=== PATIENT | female | born 1975 | race Caucasian/White ===

== ENCOUNTER 2021-03-02 02:44 | Emergency (ER) | payer MEDICAID, SELFPAY ==
[2021-03-02 02:55] VITALS: BP 120/65; PULSE 86; RESP 18; TEMP 36.3; O2SAT 99; BMI 21.4
[2021-03-02] MEDS: LORazepam 2 mg Tablet PO (03:47)
[2021-03-02 04:01] VITALS: BP 120/65; PULSE 86; RESP 18; O2SAT 99
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
== END 2021-03-02 03:50 ==
PROVIDERS: Emergency Provider Emergency Medicine; PCP Nurse Practitioner Family
DX: F41.9 Anxiety disorder, unspecified (principal)
CPT/HCPCS: 99282

== ENCOUNTER 2022-08-31 18:00 | Emergency (ER) | payer MEDICAID, SELFPAY ==
[2022-08-31 18:01] VITALS: BMI 19.2
[2022-08-31 18:06] VITALS: BP 120/74; PULSE 93; RESP 18; TEMP 36.2; O2SAT 97
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
[2022-08-31 18:36] VITALS: PULSE 101; RESP 18; O2SAT 98
[2022-08-31] MEDS: sertraline 100 mg Tablet PO (18:58)
[2022-08-31] MEDS: LORazepam 2 mg Tablet PO (18:58)
[2022-08-31] MEDS: ARIPiprazole 10 mg Tablet 5 MG PO (18:58)
== END 2022-08-31 20:25 | disposition home or self-care (01) ==
PROVIDERS: Emergency Provider Emergency Medicine; PCP Nurse Practitioner Family
DX: F41.9 Anxiety disorder, unspecified (principal); F43.9 Reaction to severe stress, unspecified
CPT/HCPCS: 99283

== ENCOUNTER → 2023-06-10 11:47 | Outpatient (BNVA) | payer MEDICAID, SELFPAY | PROVIDERS: PCP Nurse Practitioner Family; Visit Provider Obstetrics & Gynecology | DX: Z01.818 Encounter for other preprocedural examination (principal); R87.619 Unspecified abnormal cytological findings in specimens from cervix uteri | CPT/HCPCS: 81025; 88305 ==

== ENCOUNTER → 2023-06-23 15:29 | Outpatient (BNVA) | payer MEDICAID, SELFPAY | PROVIDERS: PCP Nurse Practitioner Family; Visit Provider Obstetrics & Gynecology | DX: R89.6 Abnormal cytological findings in specimens from other organs, systems and tissues (principal) | CPT/HCPCS: 76830 ==

== ENCOUNTER → 2023-07-06 11:30 | Outpatient (BNVA) | payer MEDICAID, SELFPAY | PROVIDERS: PCP Nurse Practitioner Family; Visit Provider Obstetrics & Gynecology | DX: R87.619 Unspecified abnormal cytological findings in specimens from cervix uteri (principal); R10.2 Pelvic and perineal pain | CPT/HCPCS: 80053; 85025 ==

== ENCOUNTER 2024-01-28 07:51 | Emergency (ER) | payer MEDICAID, SELFPAY ==
[2024-01-28 07:53] VITALS: BP 104/71; PULSE 69; RESP 16; TEMP 36.9; O2SAT 99; BMI 19.1
[2024-01-28 08:03] VITALS: BP 104/71; PULSE 69; RESP 16; TEMP 36.9; O2SAT 99
[2024-01-28 08:22] LABS: Charge for UA Resulting for Rev
[2024-01-28 08:28] LABS: Basophils # 0.1 10^3/uL (0.0-0.1); Basophils % 0.6 %; Eosinophils # 0.4 10^3/uL (0.0-0.8); Lymphocytes # 1.9 10^3/uL (0.8-4.8); Lymphocytes % 22.8 %; Mean Corpuscular HGB Conc 33.3 g/dL (30-55); Mean Corpuscular Hemoglobin 33.2 pg (27-33); Mean Corpuscular Volume 99.5 fl (85-98); Mean Platelet Volume 9.9 fL (7.4-10.4); Monocytes # 0.6 10^3/uL (0.2-0.9); Monocytes % 7.4 %; Nucleated Red Blood Cells % 0 %; Platelet Count 247 10^3/cmm (157-399); Red Blood Count 4.22 10^6/uL (3.85-5.65); Red Cell Distribution Width 12.4 % (12.1-15.1); White Blood Count 8.13 10^3/uL (3.29-11.43)
[2024-01-28 08:46] LABS: Acetaminophen < 5.0 ug/mL (10-30); Alanine Aminotransferase 11 U/L (0-33); Albumin Level 4.3 g/dL (3.5-5.2); Alcohol Level < 10 mg/dL (0-10); Alkaline Phosphatase 56 U/L (35-105); Anion Gap 14.1 (5-19); Aspartate Amino Transferase 16 U/L (0-32); Blood Urea Nitrogen 10 mg/dL (6-20); Calcium 8.8 mg/dL (8.5-10.5); Carbon Dioxide 21 mmol/L (22-29); Chloride 106 mmol/L (98-107); Creatinine Clr Calc Pharmacy 86.3671; Globulin 2.6 g/dL (1.3-4.6); Glomerular Filtration Rate 89.7 mL/min (90-130); Glucose 115 mg/dL (65-115); Osmolality Calculated 284 mOsm/kg (285-295); Potassium 4.1 mmol/L (3.5-5.1); Salicylate < 0.3 mg/dL (3-10); Sodium 137 mmol/L (136-145); Total Bilirubin 0.2 mg/dL (0.15-1.2); Total Protein 6.9 g/dL (6.6-8.7)
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
[2024-01-28 09:32] LABS: Bilirubin Urine Negative (Negative); Blood Urine Negative (Negative); Glucose Urine UA Negative (Normal); Ketones Urine Negative (Negative); Leukocyte Esterase Urine Negative (Negative); Nitrate Urine Negative (Negative); Protein Urine Negative (Negative); Specific Gravity, Urine 1.011 (1.005-1.030); Urine Appearance Clear (CLEAR); Urine Color Yellow (Yellow)
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
== END 2024-01-28 09:46 | disposition home or self-care (01) ==
PROVIDERS: Emergency Provider Family Medicine; PCP Nurse Practitioner Family
DX: F32.9 Major depressive disorder, single episode, unspecified (principal); F41.1 Generalized anxiety disorder; T76.31XA Adult psychological abuse, suspected, initial encounter
CPT/HCPCS: 36415; 80053; 80307; 81003; 81015; 85025; 99285

== ENCOUNTER → 2024-04-01 12:51 | Outpatient (BNVA) | payer MEDICAID, SELFPAY | PROVIDERS: PCP Nurse Practitioner Family; Visit Provider Nurse Practitioner | DX: J06.9 Acute upper respiratory infection, unspecified (principal) | CPT/HCPCS: 87426 ==

== ENCOUNTER 2024-04-02 13:30 | Emergency (ER) | payer MEDICAID, SELFPAY ==
[2024-04-02 13:33] VITALS: BP 139/119; PULSE 140; RESP 18; TEMP 37.9; O2SAT 99
--- NOTE | 2024-04-02 14:01 | XRR_ITS ---
PROCEDURE INFORMATION: Exam: XR Chest Exam date and time: 04/02/2024 2:22 PM Age: 49 years old Clinical indication: Shortness of breath; Patient HX: Tachycardia; Anxiety TECHNIQUE: Imaging protocol: Radiologic exam of the chest. Views: 1 view. COMPARISON: CR XR chest 1V [id number] 01/29/2018 3:53 PM FINDINGS: Lungs: Lungs appear clear without consolidation. Pleural spaces: No pneumothorax or pleural effusion. Heart/Mediastinum: Normal appearance of the cardiomediastinal silhouette. Bones/joints: Regional osseous structures are unremarkable. XR/XR chest 1V portable [id number] IMPRESSION: No radiographically apparent acute cardiopulmonary disease.
[2024-04-02 14:22] LABS: Basophils % 0.5 %; Eosinophils % 0.2 %; Hematocrit 41.1 % (36-47); Lymphocytes # 1.2 10^3/uL (0.8-4.8); Lymphocytes % 14.6 %; Mean Corpuscular HGB Conc 33.6 g/dL (30-55); Mean Corpuscular Hemoglobin 32.9 pg (27-33); Mean Corpuscular Volume 97.9 fl (85-98); Mean Platelet Volume 9.8 fL (7.4-10.4); Monocytes # 0.6 10^3/uL (0.2-0.9); Monocytes % 7.3 %; Neutrophils # 6.27 10^3/uL (1.8-7.7); Neutrophils % 77.2 %; Nucleated Red Blood Cells % 0 %; Platelet Count 221 10^3/cmm (157-399); Red Cell Distribution Width 12.3 % (12.1-15.1); White Blood Count 8.13 10^3/uL (3.29-11.43)
[2024-04-02 14:41] LABS: Alanine Aminotransferase 26 U/L (0-33); Albumin Level 4.2 g/dL (3.5-5.2); Alkaline Phosphatase 59 U/L (35-105); Anion Gap 14.6 (5-19); Aspartate Amino Transferase 26 U/L (0-32); Blood Urea Nitrogen 6 mg/dL (6-20); Calcium 8.6 mg/dL (8.5-10.5); Carbon Dioxide 21 mmol/L (22-29); Chloride 104 mmol/L (98-107); Globulin 2.6 g/dL (1.3-4.6); Glomerular Filtration Rate 89.7 mL/min (90-130); Glucose 104 mg/dL (65-115); Osmolality Calculated 280 mOsm/kg (285-295); Potassium 3.6 mmol/L (3.5-5.1); Sodium 136 mmol/L (136-145); Total Bilirubin 0.2 mg/dL (0.15-1.2); Total Protein 6.8 g/dL (6.6-8.7)
[2024-04-02 14:42] LABS: Troponin(5th) Baseline < 6 ng/L (0-10)
[2024-04-02 14:51] LABS: Bilirubin Urine Negative (Negative); Blood Urine Negative (Negative); Glucose Urine UA Negative (Normal); Ketones Urine Negative (Negative); Leukocyte Esterase Urine Trace (Negative); Nitrate Urine Negative (Negative); Protein Urine Negative (Negative); Specific Gravity, Urine 1.003 (1.005-1.030); Urine Appearance Clear (CLEAR); Urine Color Yellow (Yellow); Urobilinogen Urine 0.2 mg/dL (Negative); pH Urine 6.5 (5-7)
[2024-04-02] MEDS: sodium chloride 0.9% 1,000 ML 999 ML IV (14:55)
[2024-04-02 14:56] LABS: Add Urine Microscopic? YES; Bacteria Urine None Seen /hpf; Hyaline Casts Urine 0-4 /lpf; RBC Urine 0-2 /hpf (0-2); Squamous Epithelial Cell Urine 0-5 /hpf (0-5); WBC Urine 0-5 /hpf (0-5)
[2024-04-02 14:59] LABS: Amphetamines Screen Urine Negative (Negative); Barbiturates Screen Urine Negative (Negative); Benzodiazepines Screen Urine Negative (Negative); Cocaine Screen Urine Negative (Negative); Opiate Screen Urine Negative (Negative); PCP Screen Urine Negative (Negative); THC Screen Urine Positive (Negative)
--- NOTE | 2024-04-02 15:04 | ECG_ITS ---
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 Measurements Intervals [place] Rate: 87 P: 70 VT: 145 QRS: 72 QRSD: 88 T: 52 QT: 359 QTc: 434 Interpretive Statements SINUS RHYTHM WITH SINUS ARRHYTHMIA Compared to ECG 11/08/2018 01:44:24 No significant changes Electronically Signed On 04-02-2024 21:06:23 CDT by Gera Rachel M.D. [email or web address] hospital cleveland [email or web address] [id number]
[2024-04-02 15:38] VITALS: BP 115/73; PULSE 105; O2SAT 98
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
[2024-04-02 16:08] VITALS: BP 115/73; PULSE 99; O2SAT 97
== END 2024-04-02 16:23 | disposition home or self-care (01) ==
PROVIDERS: Emergency Provider Nurse Practitioner; PCP Nurse Practitioner Family
DX: F41.9 Anxiety disorder, unspecified (principal); F12.90 Cannabis use, unspecified, uncomplicated
CPT/HCPCS: 36415; 71045; 80053; 80306; 81001; 84484; 85025; 93005; 99285; J7030

== ENCOUNTER 2024-05-07 07:08 | Emergency (ER) | payer SELFPAY ==
[2024-05-07 07:08] VITALS: BP 126/85; PULSE 129; RESP 17; TEMP 36.8; O2SAT 98; BMI 18.3
--- NOTE | 2024-05-07 07:15 | ECG_ITS ---
[facility] Date: 2024-05-07 Pat Name: Tamiko Ward Department: Room: Gender: Female Stator Winder: : 1975 Requested By: Roger Mario Order Number: [id number] Aleta MD: Lyndon Lux M.D. Measurements Intervals [place] Rate: 108 P: 65 [place]: 136 QRS: 77 QRSD: 97 T: 60 QT: 348 QTc: 467 Interpretive Statements SINUS TACHYCARDIA ABNORMAL RHYTHM ECG Compared to ECG 04/02/2024 15:04:37 Sinus rhythm no longer present Sinus arrhythmia no longer present Electronically Signed On 05-07-2024 15:54:18 [employer]LE [employer] by Lyndon Lux M.D. [email or web address]
--- NOTE | 2024-05-07 07:16 | ED.C_ITS ---
HPI - Psych General: Chief Complaint: Anxiety Stated Complaint: anxiety Time Seen by Provider: 05/07/24 07:15 History of Present Illness: 49-year-old female presents to the [facility] en[facility] room reporting that she has anxiety. She admits to doing methamphetamine she is very anxious and nervous now talking profusely about various subjects random things. She denies any suicidal or homicidal ideation. She has had issues with methamphetamine use in the past. She is having some sort of relationship problem or she is at odds with a man she had been seeing. She is trying to avoid him. She stated she did snort some methamphetamine around 15 to 18 hours ago. Related Data Home Medications Medication Instructions Recorded Confirmed ipratropium 18 mcg-albuterol 103 spray inhalation 01/12/24 04/01/24 mcg/actuation aerosol inhaler Previous Rx's Medication Instructions Recorded aripiprazole 2 mg tablet (Abilify) 2 mg PO DAILY #30 tabs 01/12/24 sertraline 100 mg tablet 100 mg PO DAILY #30 tabs 01/12/24 doxycycline hyclate 100 mg tablet 100 mg PO BID 7 days #14 tabs 04/01/24 Allergies Allergy/AdvReac Type Severity Reaction Status Date / Time Penicillins Allergy Unknown Unknown Verified 04/01/24 12:41 amoxicillin Allergy ALGY-Rash Verified 04/01/24 12:41 Review of Systems Const: Denies: fever(s) or chills Card: Denies: chest pain Resp: Denies: dyspnea GI: Denies: abdominal pain : Denies: dysuria, urinary frequency or urinary urgency Musc: Denies: neck pain or back pain Skin/Breast: Denies: rash PFSH ED PFSH: Medical History PTSD (post-traumatic stress disorder) MDD (major depressive disorder) TREV (generalized anxiety disorder) Family History Denies family history of Colon cancer Ovarian cancer Thyroid cancer Diabetes Heart disease Breast cancer Hypertension Uterine cancer Stroke Social History Smoking and tobacco/nicotine status: unknown if used tobacco/nicotine Female Reproductive History: Para: 4 Spontaneous abortions: Yes (x1) Physical Exam Const: COMMON NORMALS: no acute distress GENERAL APPEARANCE: cooperative and comfortable ORIENTATION/CONSCIOUSNESS: Yes awake HENMT: COMMON NORMALS: normocephalic, atraumatic and hearing grossly normal bilaterally HEAD & SCALP: normocephalic and atraumatic Resp: COMMON NORMALS: normal respiratory effort, No retractions, No use of a ccessory muscles and clear to auscultation bilaterally AUSCULTATION: clear to auscultation bilaterally Cardio: COMMON NORMALS: regular rate, regular rhythm and No murmurs present (Cardio) RATE: regular rate RHYTHM: regular rhythm GI: COMMON NORMALS: Soft to palpation and No hepatosplenomegaly present AUSCULTATION: Yes normoactive bowel sounds PALPATION: Yes Soft to palpation, No Tenderness to palpation present (GI), No Guarding due to palpation present (GI) and Yes No hepatosplenomegaly present Extremity: COMMON NORMALS: normal to inspection, capillary refill normal, no clubbing, cyanosis or edema, no calf tenderness and no pedal edema Skin: COMMON NORMALS: no rashes or lesions noted GENERAL SKIN EXAM: no rashes or lesions noted Course Vital Signs: Vital signs: Vital Signs Temperature 98.3 F 05/07/24 07:08 Pulse Rate 129 H 05/07/24 07:08 Respiratory Rate 17 05/07/24 07:08 Blood Pressure 126/85 05/07/24 07:08 Pulse Oximetry 98 05/07/24 07:08 Oxygen Delivery Me thod Room Air 05/07/24 07:08 MDM - Psych Medical Decision Making Significant anxiety after methamphetamine use. Improved presenting Ativan. Patient has no suicidal or homicidal ideation at this time. Will discharge patient home. Reevaluated patient prior to discharge she expressed no suicidal or homicidal ideation. Medical Records I reviewed the patient's medical records. Lab Data I reviewed the patient's lab results. All radiology interpretation(s) finalized by discharge Discharge Plan Discharge Patient Disposition: Home Clinical Impression: Methamphetamine abuse, Acute anxiety Condition: Stable Prescriptions: No Action ipratropium-albuterol 18-103 mcg/actuation aerosol inhalation aripiprazole [Abilify] 2 mg tablet 2 mg PO DAILY Qty: 30 0RF sertraline 100 mg tablet 100 mg PO DAILY Qty: 30 0RF doxycycline hyclate 100 mg tablet 100 mg PO BID 7 Days Qty: 14 0RF Discharge Orders: Discharge ED (Routine); Ordered 05/07/24 Ordered By: Roger Andersen Referrals: Verito Quick FNP [Primary Care Provider] - Discharge Diet: Usual diet Discharge Activity: Increase activity as tolerated Patient Instructions: Methamphetamine Use Disorder (ED), Opioid Safety, Pain Management Activity Restrictions/Additional Instructions: Thank you for choosing [facility] for your healthcare needs today. It is very important that you follow up as instructed or that you return to the Emergency Department should you have concerns or if your condition changes or worsens in any way. Do not use methamphetamines. Coding Level of Care Code ED Net Application Support Specialist for Pb Villalta
[2024-05-07] MEDS: LORazepam 2 mg Tablet PO (08:06)
[2024-05-07 08:53] VITALS: BP 125/83; PULSE 90; O2SAT 99
== END 2024-05-07 08:54 | disposition home or self-care (01) ==
PROVIDERS: Emergency Provider Family Medicine; PCP Nurse Practitioner Family
DX: F15.10 Other stimulant abuse, uncomplicated (principal); F41.9 Anxiety disorder, unspecified
CPT/HCPCS: 93005; 99283

== ENCOUNTER 2024-06-19 20:47 | Emergency (ER) | payer MEDICAID, SELFPAY ==
[2024-06-19 20:48] VITALS: BP 149/85; PULSE 134; RESP 18; TEMP 36.9; O2SAT 96; BMI 19.1
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
[2024-06-19 21:12] VITALS: BP 136/88; PULSE 106; O2SAT 98
[2024-06-19] MEDS: LORazepam 1 mg Tablet PO (21:12)
== END 2024-06-19 21:13 | disposition home or self-care (01) ==
PROVIDERS: Emergency Provider Nurse Practitioner; PCP Nurse Practitioner Family
DX: F41.8 Other specified anxiety disorders (principal)
CPT/HCPCS: 99283

== ENCOUNTER 2024-12-13 14:42 | Emergency (ER) | payer MEDICAID, SELFPAY ==
[2024-12-13 14:46] VITALS: BP 135/81; PULSE 96; RESP 16; TEMP 37.1; O2SAT 97
[2024-12-13 16:05] LABS: Basophils % 0.6 %; Eosinophils # 0.1 10^3/uL (0.0-0.8); Eosinophils % 1.2 %; Hematocrit 42.8 % (36-47); Lymphocytes # 1.5 10^3/uL (0.8-4.8); Lymphocytes % 20.9 %; Mean Corpuscular HGB Conc 32.9 g/dL (30-55); Mean Corpuscular Hemoglobin 32.7 pg (27-33); Mean Corpuscular Volume 99.3 fl (85-98); Mean Platelet Volume 9.8 fL (7.4-10.4); Monocytes # 0.7 10^3/uL (0.2-0.9); Monocytes % 9.3 %; Neutrophils # 4.91 10^3/uL (1.8-7.7); Neutrophils % 67.7 %; Nucleated Red Blood Cells % 0 %; Platelet Count 287 10^3/cmm (157-399); Red Blood Count 4.31 10^6/uL (3.85-5.65); Red Cell Distribution Width 11.9 % (12.1-15.1); White Blood Count 7.24 10^3/uL (3.29-11.43)
[2024-12-13 16:26] LABS: Alanine Aminotransferase 12 U/L (0-33); Albumin Level 4.4 g/dL (3.5-5.2); Alkaline Phosphatase 64 U/L (35-105); Anion Gap 14.9 (5-19); Aspartate Amino Transferase 17 U/L (0-32); Blood Urea Nitrogen 10 mg/dL (6-20); Calcium 9.4 mg/dL (8.5-10.5); Carbon Dioxide 24 mmol/L (22-29); Chloride 106 mmol/L (98-107); Creatinine Clr Calc Pharmacy 86.9362; Glomerular Filtration Rate 89.7 mL/min (90-130); Glucose 93 mg/dL (65-115); Lipase 31 U/L (13-60); Osmolality Calculated 291 mOsm/kg (285-295); Potassium 3.9 mmol/L (3.5-5.1); Sodium 141 mmol/L (136-145); Total Bilirubin 0.3 mg/dL (0.15-1.2); Total Protein 7.4 g/dL (6.6-8.7)
[2024-12-13 16:35] LABS: HCG, Serum Qual Negative (Negative)
--- NOTE | 2024-12-13 18:22 | W.ED.FEMALGU ---
HPI - Female Genitourinary General: Chief complaint: Urogenital-Female Stated complaint: bleeding Time Seen by Provider: 12/13/24 18:08 History of Present Illness: 49-year-old female who presents emergency room with dysuria and hematuria. She says for about 4 to 5 days now she has been having dysuria and then started having some bleeding today. She has been trying to drink cranberry juice to help but today it got worse. No nausea or vomiting. No fevers. No urinary retention. Related Data Home Medications ?Medication ?Instructions ?Recorded ?Confirmed ipratropium 18 mcg-albuterol 103 spray inhalation 01/12/24 04/01/24 mcg/actuation aerosol inhaler Previous Rx's ?Medication ?Instructions ?Recorded aripiprazole 2 mg tablet (Abilify) 2 mg PO DAILY #30 tabs 01/12/24 sertraline 100 mg tablet 100 mg PO DAILY #30 tabs 01/12/24 doxycycline hyclate 100 mg tablet 100 mg PO BID 7 days #14 tabs 04/01/24 cefdinir 300 mg capsule 300 mg PO BID 7 days #14 caps 12/13/24 phenazopyridine 100 mg tablet 100 mg PO Q8H 6 doses #6 tabs 12/13/24 (Pyridium) Allergies Allergy/AdvReac Type Severity Reaction Status Date / Time Penicillins Allergy Unknown Unknown Verified 06/19/24 20:53 amoxicillin Allergy ALGY-Rash Verified 06/19/24 20:53 Review of Systems Narrative: Constitutional symptoms: Negative except as documented in HPI. Skin symptoms: Negative except as documented in HPI. Eye symptoms: Negative except as documented in HPI. ENMT symptoms: Negative except as documented in HPI. Respiratory symptoms: Negative except as documented in HPI. Cardiovascular symptoms: Negative except as documented in HPI. Gastrointestinal symptoms: Negative except as documented in HPI. Genitourinary symptoms: Negative except as documented in HPI. Musculoskeletal symptoms: Negative except as documented in HPI. Neurologic symptoms: Negative except as documented in HPI. Psychiatric symptoms: Negative except as documented in HPI. Endocrine symptoms: Negative except as documented in HPI. [facility] ED PFSH: Medical History PTSD (post-traumatic stress disorder) MDD (major depressive disorder) TREV (generalized anxiety disorder) Family History Denies family history of Colon cancer Ovarian cancer Thyroid cancer Diabetes Heart disease Breast cancer Hypertension Uterine cancer Stroke Social History Smoking and tobacco/nicotine status: unknown if used tobacco/nicotine Female Reproductive History: Para: 4 Spontaneous abortions: Yes (x1) Physical Exam Narrative: EXAM NARRATIVE: General: Alert, no acute distress. Skin: Warm, dry. Head: Normocephalic, atraumatic. Neck: Supple, trachea midline. Eye: Extraocular movements are intact. Ears, nose, mouth and throat: mucosa moist. Cardiovascular: Regular, Normal peripheral perfusion. Respiratory: Lungs are clear to auscultation, respirations are non-labored, breath sounds are equal, Symmetrical chest wall expansion. Gastrointestinal: Soft, Nontender, Non distended Musculoskeletal: Normal ROM, no deformity. Neurological: Alert and oriented, No focal neurological deficit observed. Psychiatric: Cooperative, appropriate mood & affect. Course Vital Signs: Vital signs: Vital Signs Temperature 98.7 F 12/13/24 14:46 Pulse Rate 70 12/13/24 19:00 Respiratory Rate 15 12/13/24 18:24 Blood Pressure 125/71 12/13/24 19:00 Pulse Oximetry 100 12/13/24 19:00 Oxygen Delivery Me thod Room Air 12/13/24 19:00 MDM - Female Medical Decision Making Medical decision making: Differential diagnosis including but not limited to and based on the above HPI, review of systems and physical exam: Differential diagnosis for patient with dysuria / lower abdominal pain: Ureterolithiasis. Urinary tract infection. Cystitis. With the possibility of sepsis, pyelonephritis and renal failure. Orders placed to evaluate differential diagnosis based on the above differential, HPI and physical exam Lab Review: Laboratory results were reviewed and interpreted by myself the emergency room physician. No leukocytosis. No anemia. No renal failure. Patient does have a significant urinary tract infection with some hematuria. 4+ bacteria. Nitrate positive. I reviewed the patient's medical record. Reexamination: Patient remained stable. No increased work of breathing. No altered mental status. No focal motor deficits. Assessment and plan: Urinary tract infection Hemorrhagic cystitis ? IM Rocephin and p.o. Pyridium in the emergency room. - Discharged home - Discussed plan with patient. Answered any questions. - Evaluation and treatment of this problem were appropriate in the emergency setting. Lab Data 12/13/24 15:46 12/13/24 15:46 Laboratory Results WBC 7.24 10^3/uL (3.29-11.43) 12/13/24 15:46 RBC 4.31 10^6/uL (3.85-5.65) 12/13/24 15:46 Hgb 14.10 g/dL (11.27-16.99) 12/13/24 15:46 Hct 42.8 % (36-47) 12/13/24 15:46 MCV 99.3 fl (85-98) H 12/13/24 15:46 MCH 32.7 pg (27-33) 12/13/24 15:46 MCHC 32.9 g/dL (30-55) 12/13/24 15:46 RDW 11.9 % (12.1-15.1) L 12/13/24 15:46 Plt Count 287 10^3/cmm (157-399) 12/13/24 15:46 MPV 9.8 fL (7.4-10.4) 12/13/24 15:46 Neut % (Auto) 67.7 % 12/13/24 15:46 Lymph % (Auto) 20.9 % 12/13/24 15:46 Noble % (Auto) 9.3 % 12/13/24 15:46 Eos % (Auto) 1.2 % 12/13/24 15:46 Baso % (Auto) 0.6 % 12/13/24 15:46 Neut # (Auto) 4.91 10^3/uL (1.8-7.7) 12/13/24 15:46 Lymph # (Auto) 1.5 10^3/uL (0.8-4.8) 12/13/24 15:46 Noble # (Auto) 0.7 10^3/uL (0.2-0.9) 12/13/24 15:46 Eos # (Auto) 0.1 10^3/uL (0.0-0.8) 12/13/24 15:46 Baso # (Auto) 0.0 10^3/uL (0.0-0.1) 12/13/24 15:46 Nucleated RBC % (auto) 0 % 12/13/24 15:46 Nucleated RBCs # 0.0 /100WBC 12/13/24 15:46 Sodium 141 mmol/L (136-145) 12/13/24 15:46 Potassium 3.9 mmol/L (3.5-5.1) 12/13/24 15:46 Chloride 106 mmol/L (98-107) 12/13/24 15:46 Carbon Dioxide 24 mmol/L (22-29) 12/13/24 15:46 Anion Gap 14.9 (5-19) 12/13/24 15:46 BUN 10 mg/dL (6-20) 12/13/24 15:46 Creatinine 0.7 mg/dL (0.5-0.9) 12/13/24 15:46 GFR Calculation 89.7 mL/min (90-130) L 12/13/24 15:46 Glucose 93 mg/dL (65-115) 12/13/24 15:46 Calculated Osmolality 291 mOsm/kg (285-295) 12/13/24 15:46 Calcium 9.4 mg/dL (8.5-10.5) 12/13/24 15:46 Total Bilirubin 0.3 mg/dL (0.15-1.2) 12/13/24 15:46 AST 17 U/L (0-32) 12/13/24 15:46 ALT 12 U/L (0-33) 12/13/24 15:46 Alkaline Phosphatase 64 U/L (35-105) 12/13/24 15:46 Total Protein 7.4 g/dL (6.6-8.7) 12/13/24 15:46 Albumin 4.4 g/dL (3.5-5.2) 12/13/24 15:46 Globulin 3.0 g/dL (1.3-4.6) 12/13/24 15:46 Lipase 31 U/L (13-60) 12/13/24 15:46 HCG, Qual Negative (Negative) 12/13/24 15:46 Urine Color Dark yellow (Yellow) A 12/13/24 18:30 Urine Appearance Turbid (CLEAR) A 12/13/24 18:30 Urine pH 5.5 (5-7) 12/13/24 18:30 Ur Specific [place] 1.022 (1.005-1.030) 12/13/24 18:30 Urine Protein 1+ (Negative) A 12/13/24 18:30 Urine Glucose (UA) Negative (Normal) 12/13/24 18:30 Urine Ketones 1+ (Negative) H 12/13/24 18:30 Urine Blood 3+ (Negative) A 12/13/24 18:30 Urine Nitrate Positive (Negative) A 12/13/24 18:30 Urine Bilirubin Negative (Negative) 12/13/24 18:30 Urine Urobilinogen 1.0 mg/dL (Negative) 12/13/24 18:30 Ur Leukocyte Esterase 3+ (Negative) A 12/13/24 18:30 Urine RBC 21-50 /hpf (0-2) H 12/13/24 18:30 Urine WBC >100 /hpf (0-5) H 12/13/24 18:30 Ur Squamous Epith Cells 0-5 /hpf (0-5) 12/13/24 18:30 Amorphous Sediment Not Reportable 12/13/24 18:30 Urine Bacteria 4+ /hpf (NONE) H 12/13/24 18:30 Hyaline Casts 3.30 /lpf 12/13/24 18:30 No radiology studies performed this visit Discharge Plan Discharge Patient Disposition: Home Clinical Impression: Urinary tract infection Condition: Stable Prescriptions: New cefdinir 300 mg capsule 300 mg PO BID 7 Days Qty: 14 0RF phenazopyridine [Pyridium] 100 mg tablet 100 mg PO Q8H Qty: 6 0RF No Action ipratropium-albuterol 18-103 mcg/actuation aerosol inhalation aripiprazole [Abilify] 2 mg tablet 2 mg PO DAILY Qty: 30 0RF sertraline 100 mg tablet 100 mg PO DAILY Qty: 30 0RF doxycycline hyclate 100 mg tablet 100 mg PO BID 7 Days Qty: 14 0RF Discharge Orders: Discharge ED (Routine); Ordered 12/13/24 Ordered By: Lakisha Davis Referrals: Verito Quick FNP [Primary Care Provider, Family Practice] Discharge Diet: Usual diet Discharge Activity: Increase activity as tolerated Patient Instructions: Urinary Tract Infection in Women (ED), Opioid Safety, Pain Management Activity Restrictions/Additional Instructions: Thank you for choosing [facility] for your healthcare needs today. You have been screened and evaluated and felt safe for discharge. Health conditions do change or evolve sometimes and as such it is important that you follow up with your Primary Doctor to be re checked, 3-5 days is a general good time frame for follow up. You are always welcome to return to the ED for re assessment if your symptoms are worsening or you have new concerns Print Language: Comoran Coding Level of Care Code ED Dial Lathe Operator for [facility]
[2024-12-13 18:24] VITALS: BP 120/80; PULSE 69; RESP 15; O2SAT 100
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
[2024-12-13 18:46] LABS: Bilirubin Urine Negative (Negative); Blood Urine 3+ (Negative); Glucose Urine UA Negative (Normal); Ketones Urine 1+ (Negative); Leukocyte Esterase Urine 3+ (Negative); Nitrate Urine Positive (Negative); Protein Urine 1+ (Negative); Specific Gravity, Urine 1.022 (1.005-1.030); Urine Appearance Turbid (CLEAR); Urine Color Dark Yellow (Yellow); pH Urine 5.5 (5-7)
[2024-12-13 18:49] LABS: Add Urine Microscopic? YES; Bacteria Urine 4+ /hpf; RBC Urine 21-50 /hpf (0-2); Squamous Epithelial Cell Urine 0-5 /hpf (0-5); Universal Test for UA Present (0); WBC Urine >100 /hpf (0-5)
[2024-12-13 18:54] LABS: Add Urine Culture? Yes
[2024-12-13 19:00] VITALS: BP 125/71; PULSE 70; O2SAT 100
[2024-12-13] MEDS: cefTRIAXone 1,000 MG in water for injection-sterile 2.1 ML 2.1 MG IM (19:09)
[2024-12-13] MEDS: phenazopyridine 100 mg Tablet 200 MG PO (19:09)
[2024-12-13 19:16] VITALS: BP 125/71; PULSE 75; RESP 18; O2SAT 100
== END 2024-12-13 19:16 | disposition home or self-care (01) ==
PROVIDERS: Emergency Medicine; Emergency Provider Emergency Medicine; PCP Nurse Practitioner Family
DX: N39.0 Urinary tract infection, site not specified (principal)
CPT/HCPCS: 36415; 80053; 81001; 83690; 84703; 85025; 87077; 87086; 87186; 96372; 99284; J0696; J9999